=== PATIENT | female | born 1975 | race Two or more races ===

== ENCOUNTER 2025-02-27 23:07 | Emergency (ER) | payer OTHER, SELFPAY ==
[2025-02-27 23:12] VITALS: BP 159/93; PULSE 90; RESP 16; TEMP 36.9; O2SAT 98
[2025-02-27 23:13] VITALS: BMI 33.0
[2025-02-27 23:20] VITALS: PULSE 98; RESP 16; O2SAT 100
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
[2025-02-28] MEDS: ONDANSETRON ODT 4 MG TABRAP PO (00:04)
[2025-02-28] MEDS: ACETAMINOPHEN w/COD 300-30 TABLET 2 TAB PO (00:04)
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
[2025-02-28 03:16] VITALS: RESP 18
== END 2025-02-28 03:17 | disposition home or self-care (01) ==
PROVIDERS: Emergency Provider Emergency Medicine
DX: S20.219A Contusion of unspecified front wall of thorax, initial encounter (principal); S30.1XXA Contusion of abdominal wall, initial encounter; S30.0XXA Contusion of lower back and pelvis, initial encounter; M25.511 Pain in right shoulder; S19.9XXA Unspecified injury of neck, initial encounter; Z88.0 Allergy status to penicillin; V44.6XXA Car passenger injured in collision with heavy transport vehicle or bus in traffic accident, initial encounter; Y92.410 Unspecified street and highway as the place of occurrence of the external cause
CPT/HCPCS: 70450; 70486; 71250; 72125; 74176; 99284; Q0162; A9270